=== PATIENT | male | born 1960 | race Caucasian/White ===

== ENCOUNTER 2021-01-04 11:25 | Inpatient (IN) | payer BC, MEDICAID, OTHER, SELFPAY ==
[~2021-01-04] VITALS: Ht 180.3 cm; Wt 124.2 kg
--- NOTE | 2021-01-04 12:24 | REP ---
INDICATION: SOB. COMPARISON: None. TECHNIQUE: Single portable AP view of the chest was performed. FINDINGS: There are peripheral infiltrates throughout the left lung. There is probably mild peripheral infiltrate in the right lung base. The heart is not significantly enlarged. The mediastinal silhouette is unremarkable. IMPRESSION: Bilateral infiltrates left greater than right. <Electronically signed by Harjinder Camacho > 01/04/21 [id number]
[2021-01-04 12:25] LABS: BASO % 0.2 % (0.0-1.0); HEMATOCRIT 38.9 % (42.0-52.0); LYMPH % 11.4 % (24.0-44.0); MEAN CORPUSCULAR HEMOGLOBIN 30.2 pg (27.0-33.0); MEAN CORPUSCULAR HGB CONC 33.4 g/dl (32.0-36.5); MEAN CORPUSCULAR VOLUME 90.3 fl (80.0-96.0); MONO # 0.7 10^3/uL (0.0-0.8); MONO % 7.6 % (2.0-8.0); NEUTROPHILS % 79.8 % (36.0-66.0); PLATELET COUNT, AUTOMATED 172 10^3/uL (150-450); RED BLOOD COUNT 4.31 10^6/uL (4.30-6.10); WHITE BLOOD COUNT 8.8 10^3/uL (4.0-10.0)
[2021-01-04 13:01] LABS: ALBUMIN 2.9 GM/DL (3.2-5.2); ALT/SGPT 128 U/L (12-78); BILIRUBIN,DIRECT 0.4 MG/DL (0.0-0.2); BILIRUBIN,TOTAL 0.7 MG/DL (0.2-1.0); BLOOD UREA NITROGEN 16 MG/DL (7-18); CALCIUM LEVEL 9.2 MG/DL (8.8-10.2); CARBON DIOXIDE LEVEL 23 MEQ/L (21-32); CHLORIDE LEVEL 111 MEQ/L (98-107); CK-MB VALUE MASS 3.2 NG/ML (<3.6); CPK CREATINE PHOSPHOKINASE 395 U/L (39-308); CREATININE FOR GFR 0.86 MG/DL (0.70-1.30); FREE T4 1.16 NG/DL (0.76-1.46); GLOMERULAR FILTRATION RATE > 60.0 (>49); GLUCOSE, FASTING 128 MG/DL (70-100); MB/CK RELATIVE INDEX 0.81 (< OR =4); NT-PRO BNP 59 PG/ML (<125); POTASSIUM SERUM 3.8 MEQ/L (3.5-5.1); SODIUM LEVEL 140 MEQ/L (136-145); TOTAL PROTEIN 7.3 GM/DL (6.4-8.2); TROPONIN I < 0.02 NG/ML (< 0.10)
[2021-01-04] MEDS ORDERED: ISOVUE-370 76% 100ML VIAL As Ordered ONE (13:28)
[2021-01-04] MEDS ORDERED: dexameTHASONE 20MG/5ML VIAL (J1100 PER 1MG) IV ONE (13:55)
--- NOTE | 2021-01-04 14:05 | REP ---
INDICATION: COVID positive pleuritic pain, hypoxia COMPARISON: None. TECHNIQUE: CT angiography of the chest after the intravenous administration of 75 cc Isovue 370 attention pulmonary arteries. FINDINGS: There is less than optimal visualization of the pulmonary arterial vasculature. There is an admixture of blood and contrast throughout small an even medium-sized pulmonary emboli could be obscured. There are no identified pulmonary emboli. There is mediastinal and hilar adenopathy. There are no pleural or pericardial effusions. The imaged osseous structures and the imaged upper abdomen are within normal limits. Evaluation of the lung sears shows patchy diffuse bilateral airspace opacities some of which have air bronchograms. IMPRESSION: 1. Suboptimal pulmonary arterial contrast opacification as described above. Pulmonary emboli cannot be ruled out. Consider follow-up. 2. Airspace disease consistent with the patient's diagnosis of COVID-19 pneumonia. <Electronically signed by Reji Bach > 01/04/21 0006
[2021-01-04] MEDS ORDERED: SIMV40TA20 PO (14:11)
[2021-01-04] MEDS ORDERED: OMEP-218 PO (14:11)
[2021-01-04] MEDS ORDERED: ASPI81TA26 PO (14:14)
[2021-01-04] MEDS ORDERED: VITMTA PO (14:14)
[2021-01-04] MEDS ORDERED: HOME MED LIST COMPLETE! XX SCH (14:20)
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
[2021-01-04 16:45] VITALS: BP 124/57
[2021-01-04 17:00] VITALS: O2SAT 94
[2021-01-04] MEDS ORDERED: REMDESIVIR 200 MG in NS 250 ML IV ONE ×2 (17:00→18:00)
[2021-01-04] MEDS: ASPIRIN 81MG ENTERIC TABLET PO SCH (18:14)
[2021-01-04] MEDS: OMEPRAZOLE 20 MG CAP PO SCH (18:14)
[2021-01-04] MEDS: MULTIVITAMINS/MINERALS THERAP 1 TAB PO SCH (18:14)
[2021-01-04] MEDS ORDERED: SODIUM CHLORIDE 0.9% INJ 10 ML SYR IV ONE (19:00)
--- NOTE | 2021-01-04 19:25 | ECGEPIP ---
[facility] - ED Test Date: 2021-01-04 Pat Name: SARAN YL Department: Room: - Gender: Male Ortho Tech: BROOKS : 1960 Requested By: MAULIK Cyr Order Number: [id number] Reading MD: Nathanael Salazar Measurements Intervals [place] Rate: 86 P: 44 [place]: 144 QRS: -34 QRSD: 98 T: -12 QT: 386 QTc: 461 Interpretive Statements Normal sinus rhythm Left axis deviation Nonspecific ST abnormality NO PRIORS FOR COMPARISON Electronically Signed on 01-04-2021 19:24:57 EDT by Nathanael Salazar
[2021-01-04 19:31] LABS: INR 1.09; PROTHROMBIN TIME 14.5 SECONDS (12.7-14.5)
[2021-01-04 19:32] LABS: PARTIAL THROMBOPLASTIN TIME 44.6 SECONDS (25.9-37.0)
[2021-01-04 19:35] LABS: D-DIMER QUANT 1462.48 ng/ml (<500)
[2021-01-04 20:00] VITALS: O2SAT 92
[2021-01-04 20:38] LABS: C REACTIVE PROTEIN QUANTITATIV 11.9 MG/DL (0.00-0.30); MAGNESIUM LEVEL 1.8 MG/DL (1.8-2.4)
[2021-01-04] MEDS: SIMVASTATIN 40 MG TAB PO SCH (20:40)
[2021-01-04 22:00] VITALS: BP 120/58
[2021-01-04 22:52] LABS: APPEARANCE, URINE CLEAR (CLEAR); BACTERIA, URINE AUTO NEGATIVE (NEGATIVE); BILIRUBIN, URINE AUTO NEGATIVE (NEGATIVE); BLOOD, URINE BLOOD 1+ (NEGATIVE); COLOR, URINE YELLOW (YELLOW); GLUCOSE, URINE (UA) AUTO NEGATIVE (NEGATIVE); KETONE, URINE AUTO NEGATIVE (NEGATIVE); LEUKOCYTE ESTERASE, URINE AUTO NEGATIVE (NEGATIVE); MUCUS, URINE SMALL (NEGATIVE); NITRITE, URINE AUTO NEGATIVE (NEGATIVE); PROTEIN, URINE AUTO 1+ mg/dL (NEGATIVE); RBC, URINE AUTO 2 /HPF (0-3); SPECIFIC GRAVITY URINE AUTO 1.023 (1.002-1.035); SQUAMOUS EPITHELIAL CELL UR AU 0 /HPF (0-6); UROBILINOGEN, URINE AUTO 0.2 mg/dL (0.0-2.0); WBC, URINE AUTO 1 /HPF (0-3)
[2021-01-05] VITALS (8 sets, daily range): BP systolic 91–118; BP diastolic 52–74; O2SAT 92–95
[2021-01-05 07:29] LABS: HEMATOCRIT 37.5 % (42.0-52.0); HEMOGLOBIN 12.3 g/dl (13.5-17.5); MEAN CORPUSCULAR HEMOGLOBIN 30.1 pg (27.0-33.0); MEAN CORPUSCULAR HGB CONC 32.8 g/dl (32.0-36.5); MEAN CORPUSCULAR VOLUME 91.9 fl (80.0-96.0); PLATELET COUNT, AUTOMATED 195 10^3/uL (150-450); RED BLOOD COUNT 4.08 10^6/uL (4.30-6.10)
[2021-01-05 07:53] LABS: ATYPICAL LYMPH 4 % (0-5); LYMPHOCYTES 9 % (16-44); MONOCYTES 2 % (0-5); NEUTROPHILS 78 % (28-66); PLATELET CLUMPS SMALL AMT; PLATELET ESTIMATE NORMAL (NORMAL)
[2021-01-05 07:55] LABS: ALBUMIN 2.6 GM/DL (3.2-5.2); ALT/SGPT 155 U/L (12-78); BILIRUBIN,DIRECT 0.3 MG/DL (0.0-0.2); BILIRUBIN,TOTAL 0.7 MG/DL (0.2-1.0); BLOOD UREA NITROGEN 22 MG/DL (7-18); CALCIUM LEVEL 8.4 MG/DL (8.8-10.2); CARBON DIOXIDE LEVEL 24 MEQ/L (21-32); CHLORIDE LEVEL 110 MEQ/L (98-107); CREATININE FOR GFR 0.85 MG/DL (0.70-1.30); GLOMERULAR FILTRATION RATE > 60.0 (>49); GLUCOSE, FASTING 143 MG/DL (70-100); MAGNESIUM LEVEL 2.1 MG/DL (1.8-2.4); POTASSIUM SERUM 4.1 MEQ/L (3.5-5.1); SODIUM LEVEL 143 MEQ/L (136-145); TOTAL PROTEIN 6.5 GM/DL (6.4-8.2)
[2021-01-05] MEDS: dexameTHASONE 4 MG/ML 1ML VIAL (J1100 PER 1MG) IV SCH (08:41)
[2021-01-05] MEDS: OMEPRAZOLE 20 MG CAP PO SCH (08:41)
[2021-01-05] MEDS: DOXYCYCLINE HYCLATE 100MG TABLET PO SCH ×2 (08:41→21:25)
[2021-01-05] MEDS: ASPIRIN 81MG ENTERIC TABLET PO SCH (08:41)
[2021-01-05] MEDS: MULTIVITAMINS/MINERALS THERAP 1 TAB PO SCH (08:41)
[2021-01-05] MEDS: cefTRIAXone SOD 1 GM in D5W MINI-BAG PLUS 50 ML IV SCH (08:42)
[2021-01-05] MEDS: ENOXAPARIN 40MG/0.4ML SYRINGE (J1650 PER 10MG) SC SCH (08:43)
[2021-01-05] MEDS: LACTOBACILLUS ACIDOPHILUS CAP (BACID) PO SCH ×2 (10:37→17:50)
--- NOTE | 2021-01-05 14:18 | IPNPDOC ---
Subjective Date Seen The patient was seen on 01/05/21. Subjective Chief Complaint/HPI Mr. Bolaños is a 60-year-old male with morbid obesity who is here for Covid pneumonia. Patient is not Covid vaccinated. This morning, patient's breathing is improved. His oxygen requirements down trended from 4 L to 3 L. Denies any chest pain. Objective Physical Examination General Exam: Positive: Alert, Cooperative Eye Exam: Negative: Sclera icteric Neck Exam: Positive: Supple Chest Exam: Positive: Clear to auscultation Heart Exam: Positive: Rate Normal, Regular Rhythm Abdomen Exam: Positive: Normal bowel sounds, Soft; Negative: Tenderness Extremity Exam: Negative: Edema Neuro Exam: Positive: Normal Speech Psych Exam: Positive: Mental status NL, Mood NL Assessment /Plan Assessment Mr. Bolaños is a 60-year-old male with morbid obesity who is here for Covid pneumonia. Patient is not Covid vaccinated. Patient's oxygen requirements have been improving. Continue ceftriaxone, doxycycline, dexamethasone, and remdesivir. When patient reaches 2 L of nasal cannula, can consider home with home oxygen. Plan/VTE VTE Prophylaxis Ordered?: Yes Plan 1. Covid pneumonia Continue dexamethasone and remdesivir Procalcitonin mildly elevated at 0.26 We will continue ceftriaxone and doxycycline (QTC mildly elevated) day 1 2. Hyperlipidemia Continue simvastatin 3. GERD Continue omeprazole 4. Port obesity BMI 38.2 Complicates care 5. DVT prophylaxis Lovenox and aspirin Disposition: Pending improvement in oxygen requirements VS, I&O, 24H, Fishbone Vital Signs/I&O Vital Signs Date Time Temp Pulse Resp B/P (MAP) Pulse Ox O2 Delivery O2 Flow Rate FiO2 01/05/21 14:00 95.7 74 20 91/52 (65) Nasal Cannula 01/05/21 09:00 4.0 01/05/21 06:19 93 01/04/21 16:45 94 I&O- Last 24 Hours up to 6 AM 01/05/21 06:00 Intake Total 0 ml Output Total 900 ml Balance -900 ml Laboratory Data 24H LABS Laboratory Tests 2 01/04/21 19:05: Prothrombin Time 14.5H, Prothromb Time International Ratio 1.09, Activated Partial Thromboplast Time 44.6H, Fibrinogen 708H, D-Dimer, Quantitative 1462.48H, Magnesium Level 1.8, Ferritin 3438H, Lactate Dehydrogenase 616H, C- Reactive Protein, Quantitative 11.90H, UD-Zft-A-Type Natriuretic Peptide 62, P rocalcitonin 0.28 01/04/21 22:30: Urine Color YELLOW, Urine Appearance CLEAR, Urine pH 5.0, Urine Specific [place] 1.023, Urine Protein 1+H, Urine Glucose (Auto)(UA) NEGATIVE, Urine Ketones (Auto) NEGATIVE, Urine Blood 1+H, Urine Nitrite NEGATIVE, Urine Bilirubin NEGATIVE, Urine Urobilinogen 0.2, Urine Leukocyte Esterase (Auto) NEGATIVE, Urine WBC (Auto) 1, Urine RBC (Auto) 2, Urine Hyaline Casts (Auto) 0, Urine Bacteria (Auto) NEGATIVE, Urine Squamous Epithelial Cells 0, Urine Mucus (Auto) SMALL, Urine Sperm (Auto) 01/05/21 06:05: Bedside Glucose (Misc Panel) 145H 01/05/21 06:43: Magnesium Level 2.1, Neutrophils (%) (Auto) , Nucleated Red Blood Cells % (auto) 0.0, Neutrophils 78H, Band Neutrophils 7, Lymphocytes (Manual) 9L, Monocytes (Manual) 2, Atypical Lymphocytes 4, Platelet Estimate NORMAL, Clumped Platelets SMALL AMT, Anion Gap 9, Glomerular Filtration Rate > 60.0, Calcium Level 8.4L, Total Bilirubin 0.7, Direct Bilirubin 0.3H, Aspartate Amino Transf (AST/SGOT) 136H, Alanine Aminotransferase (ALT/SGPT) 155H, Alkaline Phosphatase 90, Total Protein 6.5, Albumin 2.6L, Albumin/Globulin Ratio 0.7 CBC/BMP Laboratory Tests 01/05/21 06:43 Microbiology Microbiology 01/04/21 Blood Culture, Received Pending 01/04/21 Blood Culture, Received Pending PRINCE OLIVAS DO Jan 05, 2021 14:18
[2021-01-05] MEDS ORDERED: SODIUM CHLORIDE 0.9% INJ 10 ML SYR IV SCH (18:00)
[2021-01-05] MEDS ORDERED: REMDESIVIR 100 MG in NS 250 ML IV SCH (18:00)
[2021-01-05] MEDS: SIMVASTATIN 40 MG TAB PO SCH (21:25)
[2021-01-06] VITALS: O2SAT 91
[2021-01-06 04:00] VITALS: O2SAT 93
[2021-01-06 07:33] LABS: BASO % 0.2 % (0.0-1.0); HEMATOCRIT 38.2 % (42.0-52.0); HEMOGLOBIN 12.5 g/dl (13.5-17.5); LYMPH # 1.2 10^3/uL (1.5-5.0); LYMPH % 7.5 % (24.0-44.0); MEAN CORPUSCULAR HEMOGLOBIN 30.6 pg (27.0-33.0); MEAN CORPUSCULAR HGB CONC 32.7 g/dl (32.0-36.5); MEAN CORPUSCULAR VOLUME 93.6 fl (80.0-96.0); MONO # 0.9 10^3/uL (0.0-0.8); MONO % 5.8 % (2.0-8.0); NEUTROPHILS % 85.3 % (36.0-66.0); PLATELET COUNT, AUTOMATED 266 10^3/uL (150-450); RED BLOOD COUNT 4.08 10^6/uL (4.30-6.10); WHITE BLOOD COUNT 15.3 10^3/uL (4.0-10.0)
[2021-01-06 07:45] LABS: INR 1.1; PROTHROMBIN TIME 14.6 SECONDS (12.7-14.5)
[2021-01-06 07:46] LABS: PARTIAL THROMBOPLASTIN TIME 41.6 SECONDS (25.9-37.0)
[2021-01-06 08:00] VITALS: O2SAT 91
[2021-01-06 08:31] LABS: ALBUMIN 2.6 GM/DL (3.2-5.2); ALT/SGPT 124 U/L (12-78); BILIRUBIN,DIRECT 0.2 MG/DL (0.0-0.2); BILIRUBIN,TOTAL 0.4 MG/DL (0.2-1.0); BLOOD UREA NITROGEN 27 MG/DL (7-18); CALCIUM LEVEL 8.2 MG/DL (8.8-10.2); CARBON DIOXIDE LEVEL 27 MEQ/L (21-32); CHLORIDE LEVEL 112 MEQ/L (98-107); CPK CREATINE PHOSPHOKINASE 161 U/L (39-308); CREATININE FOR GFR 0.87 MG/DL (0.70-1.30); FERRITIN 3131 NG/ML (26-388); GLOMERULAR FILTRATION RATE > 60.0 (>49); GLUCOSE, FASTING 129 MG/DL (70-100); LDH LACTATE DEHYDROGENASE 433 U/L (87-241); MAGNESIUM LEVEL 2.2 MG/DL (1.8-2.4); NT-PRO BNP 109 PG/ML (<125); POTASSIUM SERUM 4.4 MEQ/L (3.5-5.1); SODIUM LEVEL 146 MEQ/L (136-145); TROPONIN I < 0.02 NG/ML (< 0.10)
[2021-01-06] MEDS: MULTIVITAMINS/MINERALS THERAP 1 TAB PO SCH (08:58)
[2021-01-06] MEDS: DOXYCYCLINE HYCLATE 100MG TABLET PO SCH (08:58)
[2021-01-06] MEDS: ASPIRIN 81MG ENTERIC TABLET PO SCH (08:58)
[2021-01-06] MEDS: LACTOBACILLUS ACIDOPHILUS CAP (BACID) PO SCH (08:58)
[2021-01-06] MEDS: dexameTHASONE 4 MG/ML 1ML VIAL (J1100 PER 1MG) IV SCH (08:58)
[2021-01-06] MEDS: OMEPRAZOLE 20 MG CAP PO SCH (08:58)
[2021-01-06] MEDS: ENOXAPARIN 40MG/0.4ML SYRINGE (J1650 PER 10MG) SC SCH (08:59)
[2021-01-06] MEDS: cefTRIAXone SOD 1 GM in D5W MINI-BAG PLUS 50 ML IV SCH (08:59)
[2021-01-06] MEDS ORDERED: PRED10TA2 PO (09:37)
[2021-01-06] MEDS ORDERED: CVS1CAP2 PO (09:37)
[2021-01-06] MEDS ORDERED: CEFD1CAP8 PO (09:37)
[2021-01-06] MEDS ORDERED: DOXY100T PO (09:37)
--- NOTE | 2021-01-06 13:34 | DS.PDOC ---
Discharge Summary General Date of Admission Jan 04, 2021 at 15:04 Date of Discharge Jan 06, 2021 Discharge Summary PROCEDURES PERFORMED DURING STAY: None ADMITTING DIAGNOSES: 1. COVID-19 pneumonia 2. Superimposed bacterial community-acquired pneumonia 3. Hyperlipidemia 4. GERD 5. Morbid obesity DISCHARGE DIAGNOSES: 1. COVID-19 pneumonia 2. Superimposed bacterial community-acquired pneumonia 3. Hyperlipidemia 4. GERD 5. Morbid obesity COMPLICATIONS/CHIEF COMPLAINT: Covid 19. HISTORY OF PRESENT ILLNESS: Copied from admitting attendings H&P " 60 yo man with a history of obsity, HLD and GERD, non-smoker, not covid-19 vaccinated who presented to the ED for worsening SOB from home where he had been self isolating with ongoing covid-19 infection that was diagnosed at [place] on 12/31 and symptoms that began 7d ago including SOB worse with exertion, dry cough sometimes with mild yellowish sputum, body aches, some pleurisy and sore throat. He denies any fevers thus far, chest pain, palpitations, abdominal pain, nausea, vomiting, diarrhea, blood in stool, sputum or easy bleeding or bruising. In the ED, he was normotensive and saturating 91% on room air and on ambulation dropped to 84% and was tachypneic so he was placed on 4L NC. Work up was notable for CXR that showed bilateral scattered infiltrates, CTA that showed diffuse GGOs and unfortunately the study was not optimal in pulmonary arteries opacification to definitively rule out a PE, WBC was 8.8, hgb 13, platelets 172, AST 158, ALT 128, na 140, K 3.8, Cr 0.86. He is now being admitted to medicine for covid-19 PNA with mild exertional hypoxemia. " HOSPITAL COURSE: Initially, patient required 4 L of oxygen. Procalcitonin was elevated at 0.26. Patient was given antibiotics, remdesivir, dexamethasone, Lovenox, and aspirin. Patient did well during hospitalization and was weaned off of oxygen. Today, patient felt better. Denied any chest pain or worsening dyspnea. He still had a little bit of malaise. Patient will be discharged home with p.o. antibiotics and prednisone taper. DISCHARGE MEDICATIONS: Please see below. ALLERGIES: Please see below. PHYSICAL EXAMINATION ON DISCHARGE: VITAL SIGNS: Please see below. GENERAL: Comfortable, in no apparent distress. HEENT: Head normocephalic/atraumatic, sclera clear. NECK: Supple. RESPIRATORY: Lungs clear to auscultation bilaterally, no rales, wheeze or rhonchi. CARDIOVASCULAR: Regular rate and rhythm. ABDOMEN: Soft, nontender, no guarding or rebound tenderness. Normal bowel sounds. MUSCLE SKELETAL: No pitting edema NEUROLOGICAL: No focal deficits noted. PSYCHOLOGICAL: Normal mood and affect LABORATORY DATA: Please see below. IMAGING: Please see chart for imaging PROGNOSIS: Good ACTIVITY: As tolerated. DIET: As tolerated DISCHARGE PLAN: Home with home health services DISPOSITION: Home Health Service. DISCHARGE INSTRUCTIONS: 1. Follow-up with PCP in 1 week. 2. Take antibiotics and steroids to completion. Patient was discharged with p.o. cefdinir and p.o. doxycycline. Patient did have a QTC of 461 thus doxycycline was chosen over azithromycin DISCHARGE CONDITION: Stable. Total time spent on discharge planning, discharge summary, and medication reconciliation: 35 minutes Vital Signs/I&Os Vital Signs Date Time Temp Pulse Resp B/P (MAP) Pulse Ox O2 Delivery O2 Flow Rate FiO2 01/06/21 08:00 91 Room Air 01/06/21 04:00 4.0 01/05/21 22:00 96.5 65 20 117/64 (81) 01/04/21 16:45 94 I&O- Last 24 Hours up to 6 AM 01/06/21 06:00 Intake Total 1170 ml Output Total 1675 ml Balance -505 ml Laboratory Data Labs 24H Laboratory Tests 2 01/06/21 07:15: Immature Granulocyte % (Auto) 1.2, Neutrophils (%) (Auto) 85.3H, Lymphocytes (%) (Auto) 7.5L, Monocytes (%) (Auto) 5.8, Eosinophils (%) (Auto) 0.0, Basophils (%) (Auto) 0.2, Neutrophils # (Auto) 13.0H, Lymphocytes # (Auto) 1.2L, Monocytes # (Auto) 0.9H, Eosinophils # (Auto) 0.0, Basophils # (Auto) 0.0, Nucleated Red Blood Cells % (auto) 0.0, Prothrombin Time 14.6H, Prothromb Time International Ratio 1.10, Activated Partial Thromboplast Time 41.6H, Fibrinogen 608H, Anion Gap 7L, Glomerular Filtration Rate > 60.0, Calcium Level 8.2L, Magnesium Level 2.2, Ferritin 3131H, Total Bilirubin 0.4, Direct Bilirubin 0.2, Aspartate Amino Transf (AST/SGOT) 73H, Alanine Aminotransferase (ALT/SGPT) 124H, Alkaline Phosphatase 72, Lactate Dehydrogenase 433H, Total Creatine Kinase 161, Troponin I < 0.02, CK-Nua-T-Type Natriuretic Peptide 109, Total Protein 6.0L, Albumin 2.6L, Albumin/Globulin Ratio 0.8, Procalcitonin 0.15 CBC/BMP Laboratory Tests 01/06/21 07:15 Microbiology Microbiology 01/04/21 Blood Culture - Preliminary, Resulted No growth after 24 hours . All specim... 01/04/21 Blood Culture - Preliminary, Resulted No growth after 24 hours . All specim... Discharge Medications Scheduled Aspirin (Aspirin EC) 81 Mg Tablet.dr, 81 MG PO DAILY, (Reported) Cefdinir (Cefdinir) 300 Mg Capsule, 300 MG PO BID Doxycycline Hyclate (Doxycycline Hyclate) 100 Mg Tablet, 100 MG PO BID Lactobacillus Combo No.10 (Probiotic) 1 Each Capsule, 1 TAB PO BID Multivitamins (Thera M Plus Tablet) 1 Each Tablet, 1 TAB PO DAILY, (Reported) Omeprazole (Omeprazole) 20 Mg Capsule.dr, 20 MG PO DAILY, (Reported) Prednisone (Prednisone) 10 Mg Tablet, 10 MG PO TAPER Take 4 tabs daily x 3 days, then 3 tabs daily x 3 days, then 2 tabs daily x 3 days, then 1 tab daily x 3 days and stop Simvastatin (Simvastatin) 40 Mg Tablet, 80 MG PO QHS, (Reported) Allergies Coded Allergies: No Known Allergies (Verified Allergy, Unknown, 01/04/21) PRINCE OLIVAS DO Jan 06, 2021 13:34
== END 2021-01-06 12:01 | disposition home health service (06) | DRG 137 ==
LOC: M ED 11:25 → M ED INP 15:04 → ENRESERV 15:56 → M 4MAIN 16:34
PROVIDERS: ADMIT Internal Medicine; ATTEND Internal Medicine
PROC: XW033E5 Introduction of Remdesivir Anti-infective into Peripheral Vein, Percutaneous Approach, New Technology Group 5 (ICD-10-PCS; principal; 2021-01-04)
PROC: 3E0333Z Introduction of Anti-inflammatory into Peripheral Vein, Percutaneous Approach (ICD-10-PCS; 2021-01-04)
DX: U07.1 COVID-19 (principal); J12.82 Pneumonia due to coronavirus disease 2019; J15.9 Unspecified bacterial pneumonia; E66.01 Morbid (severe) obesity due to excess calories; E78.5 Hyperlipidemia, unspecified; K21.9 Gastro-esophageal reflux disease without esophagitis; Z87.891 Personal history of nicotine dependence; Z79.82 Long term (current) use of aspirin; Z79.899 Other long term (current) drug therapy; Z68.38 Body mass index [BMI] 38.0-38.9, adult

== ENCOUNTER 2023-05-27 06:36 | Day surgery (SDC) | payer BC ==
[~2023-05-27] VITALS: Ht 177.8 cm; Wt 137.4 kg
[~2023-05-27 06:36] MED LIST: ASPI81TA26 PO; CEFD1CAP9 PO; CELE1CAP4 PO; CVS1CAP2 PO; DOXY100T PO; OMEP-173 PO; PHENYLEPHRINE 10% OPHTH SOL 5ML OS PRN; PRED10TA2 PO; SIMV40TA20 PO; VITMTA PO
[2023-05-27] MEDS: LIDOCAINE 3.5 % 1ML OPHTH TOPICAL GEL OU ONE (07:10)
[2023-05-27] MEDS: CYCLOPENTOLATE 1% OPHTH SOLN 2ML BTL OS SCH (07:10)
[2023-05-27] MEDS: TROPICAMIDE 1% OPHTH SOLN 15ML OS SCH (07:10)
[2023-05-27] MEDS: PHENYLEPHRINE 2.5% OPHTH SOL 2ML OS SCH (07:10)
[2023-05-27] MEDS: OFLOXACIN 0.3 % (OCUFLOX) OPTH SOL 5ML OS ONE (07:10)
[2023-05-27] MEDS ORDERED: MIDAZOLAM 5MG/ML 1ML VIAL As Ordered ONE (07:33)
[2023-05-27] MEDS: BSS IRRIG/VANCO(10MG)/TOBRA(5MG)/EPINEPH(1:1000-0.5CC)500ML BAG-ORONLY As Ordered ONE (08:05)
[2023-05-27] MEDS: CEFUROXIME 1MG/0.1ML INTRACAMERAL INJ As Ordered ONE (08:05)
[2023-05-27] MEDS: LIDOCAINE 1% SDV 5ML VIAL As Ordered ONE (08:05)
[2023-05-27 08:25] VITALS: BP 127/80; TEMP 97.5; O2SAT 96
== END 2023-05-27 08:35 | disposition home or self-care (01) ==
LOC: M SDC 06:36
PROVIDERS: ATTEND Ophthalmology
DX: H25.12 Age-related nuclear cataract, left eye (principal); H57.03 Miosis; G47.30 Sleep apnea, unspecified; Z79.899 Other long term (current) drug therapy
CPT/HCPCS: 66982; 92015; J0697; J2250; V2788